=== PATIENT | female | born 1940 | race Caucasian/White ===

== ENCOUNTER 2021-09-17 19:30 | Inpatient (IN) | payer OTHER, MEDICAID ==
[~2021-09-17] VITALS: Ht 154.9 cm; Wt 49.4 kg
[~2021-09-17 19:30] MED LIST: EZET10TA PO; LEVO25TA2 PO
[2021-09-17 19:43] VITALS: BP_SYST 113
[2021-09-17] MEDS ORDERED: NACL 0.9% 1,000 ML IV ONE (20:30)
[2021-09-17] MEDS ORDERED: cefTRIAXone 1 GM IVPB PREMIX 50 ML IV ONE (20:45)
[2021-09-17 21:23] LABS: BILIRUBIN,URINE NEGATIVE (NEGATIVE); CLARITY/URINE CLEAR (CLEAR); COLOR,URINE YELLOW (YELLOW); GLUCOSE,URINE NEGATIVE (NEGATIVE); KETONES,URINE NEGATIVE (NEGATIVE); LEUKOCYTE ESTERASE ,URINE 1+ (NEGATIVE); NITRITE, URINE NEGATIVE (NEGATIVE); PH,URINE 6.5 (5.0-8.0); PROTEIN URINE NEGATIVE (NEGATIVE); UROBILINOGEN,URINE 0.2 (0.2-1.0)
[2021-09-17 21:26] LABS: BASOPHILS % (AUTO) 0.6 % (0.0-2.0); EOSINOPHILS # (AUTO) 0.1 K/uL (0.0-0.4); EOSINOPHILS % (AUTO) 1.2 % (0.0-4.0); HEMATOCRIT 37.7 % (36-48); LYMPHOCYTES # (AUTO) 1.8 K/uL (1.0-5.5); LYMPHOCYTES % (AUTO) 31.6 % (20.5-51.5); MEAN CORPUSCULAR HEMOGLOBIN 30 pg (27-31); MEAN CORPUSCULAR HGB CONC 35 % (32-36); MEAN CORPUSCULAR VOLUME 87 fL (79.0-98.0); MONOCYTES # (AUTO) 0.7 K/uL (0.0-1.0); MONOCYTES % (AUTO) 12.7 % (1.7-9.3); NEUTROPHILS # (AUTO) 3.1 K/uL (1.8-7.7); NEUTROPHILS % (AUTO) 53.9 % (40.0-70.0); PLATELET COUNT (AUTO) 274 K/uL (130-430); RED BLOOD CELL COUNT(AUTO) 4.32 MIL/uL (4.2-6.2); RED CELL DISTRIBUTION WIDTH 12.9 % (9.0-15.0); WHITE BLOOD COUNT (AUTO) 5.7 K/uL (4.8-10.8)
[2021-09-17 21:27] LABS: BLOOD, URINE TRACE (NEGATIVE)
[2021-09-17 21:34] LABS: BACTERIA,URINE FEW /HPF (None Seen); RBC,URINE 0-3 /HPF (0-3); WBC,URINE 0-3 /HPF (0-3)
[2021-09-17 22:05] LABS: ANION GAP 9 (5-15); CALCIUM 8.3 mg/dL (8.4-11.0); CHLORIDE 92 mmol/L (98-107); CREATININE 1.36 mg/dL (0.55-1.30); GLUCOSE 97 mg/dL (70-99); SODIUM SERUM 126 mmol/L (136-145); UREA NITROGEN, BLOOD 9 mg/dL (8-21)
[2021-09-17 22:20] LABS: ALANINE AMINOTRANSFERASE 25 U/L (12-78); ALBUMIN 3.3 g/dL (3.4-4.8); ASPARTATE AMINOTRANSFERASE 27 U/L (10-37); TOTAL BILIRUBIN 0.3 mg/dL (0.0-1.0)
[2021-09-17 22:50] LABS: POTASSIUM 2.4 mmol/L (3.5-5.1)
[2021-09-17] MEDS ORDERED: MAGNESIUM SULFATE 50 ML IV ONE (23:15)
[2021-09-17] MEDS ORDERED: KCL 40 mEq in 100 mL (PREMIX) 100 ML IV ONE (23:15)
[2021-09-17] MEDS ORDERED: POTASSIUM CHLORIDE 20 MEQ/PKT PACKET PO ONE (23:15)
[2021-09-18 03:30] VITALS: BP_SYST 99
[2021-09-18 04:00] VITALS: BP_SYST 99
[2021-09-18] MEDS: NACL 0.9% 1,000 ML IV SCH (05:39)
[2021-09-18 07:03] LABS: BASOPHILS % (AUTO) 0.4 % (0.0-2.0); EOSINOPHILS # (AUTO) 0.1 K/uL (0.0-0.4); EOSINOPHILS % (AUTO) 0.9 % (0.0-4.0); HEMATOCRIT 37.1 % (36-48); HEMOGLOBIN 12.6 g/dL (12.0-16.0); LYMPHOCYTES # (AUTO) 1.5 K/uL (1.0-5.5); LYMPHOCYTES % (AUTO) 24.4 % (20.5-51.5); MEAN CORPUSCULAR HEMOGLOBIN 30 pg (27-31); MEAN CORPUSCULAR HGB CONC 34 % (32-36); MEAN CORPUSCULAR VOLUME 88 fL (79.0-98.0); MONOCYTES # (AUTO) 0.7 K/uL (0.0-1.0); MONOCYTES % (AUTO) 10.8 % (1.7-9.3); NEUTROPHILS # (AUTO) 3.9 K/uL (1.8-7.7); NEUTROPHILS % (AUTO) 63.5 % (40.0-70.0); PLATELET COUNT (AUTO) 252 K/uL (130-430); RED BLOOD CELL COUNT(AUTO) 4.21 MIL/uL (4.2-6.2); WHITE BLOOD COUNT (AUTO) 6.1 K/uL (4.8-10.8)
[2021-09-18 08:00] VITALS: BP_SYST 95
[2021-09-18 08:21] LABS: ALANINE AMINOTRANSFERASE 20 U/L (12-78); ANION GAP 7 (5-15); ASPARTATE AMINOTRANSFERASE 23 U/L (10-37); CALCIUM 7.6 mg/dL (8.4-11.0); CHLORIDE 105 mmol/L (98-107); GLUCOSE 92 mg/dL (70-99); POTASSIUM 3.4 mmol/L (3.5-5.1); SODIUM SERUM 139 mmol/L (136-145); TOTAL BILIRUBIN 0.3 mg/dL (0.0-1.0); UREA NITROGEN, BLOOD 6 mg/dL (8-21)
[2021-09-18 12:00] VITALS: BP_SYST 99
[2021-09-18] MEDS ORDERED: CAMPHOR TP PRN (14:30)
[2021-09-18] MEDS ORDERED: PHENOL TP PRN (14:30)
[2021-09-18] MEDS ORDERED: POTASSIUM CHLORIDE 20 MEQ/PKT PACKET PO ONE (14:30)
[2021-09-18] MEDS ORDERED: DIMETHICONE TP PRN (14:30)
[2021-09-18] MEDS ORDERED: MENTHOL TP PRN (14:30)
[2021-09-18] MEDS ORDERED: PHENYLEPH/MINERAL OIL/PETROLAT 57 GM OINT.APPL TP PRN (14:30)
[2021-09-18] MEDS ORDERED: EZETIMIBE 10 MG TABLET PO ONE (14:45)
[2021-09-18] MEDS ORDERED: LEVOTHYROXINE SODIUM 0.075 MG TABLET PO ONE (14:45)
[2021-09-18 16:00] VITALS: BP_SYST 101
[2021-09-18 20:05] VITALS: BP_SYST 114
[2021-09-18] MEDS ORDERED: cefTRIAXone 1 GM VIAL IM SCH (21:00)
[2021-09-18] MEDS ORDERED: cefTRIAXone 1 GM IVPB PREMIX 50 ML IV ONE (22:01)
[2021-09-18] MEDS: cefTRIAXone 1 GM in D5W 50 ML IV SCH (22:30)
[2021-09-19 00:58] VITALS: BP_SYST 95
[2021-09-19] MEDS: NACL 0.9% 1,000 ML IV SCH ×2 (02:35→21:43)
[2021-09-19] MEDS: LEVOTHYROXINE SODIUM 0.075 MG TABLET PO SCH (06:08)
[2021-09-19 06:42] LABS: BASOPHILS % (AUTO) 0.6 % (0.0-2.0); EOSINOPHILS # (AUTO) 0.1 K/uL (0.0-0.4); EOSINOPHILS % (AUTO) 1.9 % (0.0-4.0); HEMATOCRIT 34.3 % (36-48); HEMOGLOBIN 11.7 g/dL (12.0-16.0); LYMPHOCYTES # (AUTO) 1.5 K/uL (1.0-5.5); LYMPHOCYTES % (AUTO) 27.2 % (20.5-51.5); MEAN CORPUSCULAR HEMOGLOBIN 30 pg (27-31); MEAN CORPUSCULAR HGB CONC 34 % (32-36); MEAN CORPUSCULAR VOLUME 89 fL (79.0-98.0); MONOCYTES # (AUTO) 0.6 K/uL (0.0-1.0); MONOCYTES % (AUTO) 10.9 % (1.7-9.3); NEUTROPHILS # (AUTO) 3.3 K/uL (1.8-7.7); NEUTROPHILS % (AUTO) 59.4 % (40.0-70.0); PLATELET COUNT (AUTO) 230 K/uL (130-430); RED BLOOD CELL COUNT(AUTO) 3.88 MIL/uL (4.2-6.2); RED CELL DISTRIBUTION WIDTH 13.2 % (9.0-15.0); WHITE BLOOD COUNT (AUTO) 5.5 K/uL (4.8-10.8)
[2021-09-19] MEDS ORDERED: LEVOTHYROXINE SODIUM 0.075 MG TABLET PO SCH (07:00)
[2021-09-19 07:32] LABS: ANION GAP 8 (5-15); CHLORIDE 108 mmol/L (98-107); CREATININE 0.87 mg/dL (0.55-1.30); GLUCOSE 87 mg/dL (70-99); PHOSPHORUS 2.4 mg/dL (2.7-4.5); SODIUM SERUM 142 mmol/L (136-145); THYROID STIMULATING HORMONE 2.06 uIu/mL (0.36-3.74); UREA NITROGEN, BLOOD 5 mg/dL (8-21)
[2021-09-19 07:46] VITALS: BP_SYST 104
[2021-09-19 08:08] LABS: CALCIUM 6.9 mg/dL (8.4-11.0); POTASSIUM 2.6 mmol/L (3.5-5.1)
[2021-09-19] MEDS: EZETIMIBE 10 MG TABLET PO SCH (08:51)
[2021-09-19] MEDS ORDERED: POTASSIUM CHLORIDE 20 MEQ TAB.PRT.SR PO ONE (10:00)
[2021-09-19] MEDS ORDERED: CALCIUM GLUCONATE 2 GM in NS 100 ML IV ONE (11:00)
[2021-09-19 12:16] VITALS: BP_SYST 132
[2021-09-19] MEDS ORDERED: K PHOS 15 MM in NS 250 ML IV ONE (14:00)
[2021-09-19 15:05] LABS: URIC ACID 4.1 mg/dL (2.4-7.0)
[2021-09-19 18:36] VITALS: BP_SYST 120
[2021-09-19 20:38] VITALS: BP_SYST 113
[2021-09-19] MEDS: DOCUSATE SODIUM 100 MG CAPSULE PO PRN (21:41)
[2021-09-19] MEDS: cefTRIAXone 1 GM in D5W 50 ML IV SCH (21:42)
[2021-09-19] MEDS: TEMAZEPAM 7.5 MG CAPSULE PO PRN (21:42)
[2021-09-20] VITALS: BP_SYST 116
[2021-09-20] MEDS: LEVOTHYROXINE SODIUM 0.075 MG TABLET PO SCH (06:12)
[2021-09-20 07:48] VITALS: BP_SYST 127
[2021-09-20 08:01] LABS: ANION GAP 8 (5-15); CHLORIDE 108 mmol/L (98-107); CREATININE 0.78 mg/dL (0.55-1.30); GLUCOSE 82 mg/dL (70-99); PHOSPHORUS 2.7 mg/dL (2.7-4.5); SODIUM SERUM 142 mmol/L (136-145); UREA NITROGEN, BLOOD 5 mg/dL (8-21)
[2021-09-20] MEDS: EZETIMIBE 10 MG TABLET PO SCH (08:04)
[2021-09-20] MEDS: POTASSIUM CHLORIDE 20 MEQ TAB.PRT.SR PO SCH (08:04)
[2021-09-20] MEDS: DOCUSATE SODIUM 100 MG CAPSULE PO PRN (08:05)
[2021-09-20 08:24] LABS: BASOPHILS % (AUTO) 0.4 % (0.0-2.0); EOSINOPHILS # (AUTO) 0.1 K/uL (0.0-0.4); EOSINOPHILS % (AUTO) 1.1 % (0.0-4.0); HEMOGLOBIN 12.5 g/dL (12.0-16.0); LYMPHOCYTES # (AUTO) 1.5 K/uL (1.0-5.5); MEAN CORPUSCULAR HEMOGLOBIN 30 pg (27-31); MEAN CORPUSCULAR HGB CONC 34 % (32-36); MEAN CORPUSCULAR VOLUME 89 fL (79.0-98.0); MONOCYTES # (AUTO) 0.8 K/uL (0.0-1.0); MONOCYTES % (AUTO) 8.9 % (1.7-9.3); NEUTROPHILS # (AUTO) 6.6 K/uL (1.8-7.7); NEUTROPHILS % (AUTO) 72.6 % (40.0-70.0); PLATELET COUNT (AUTO) 220 K/uL (130-430); RED BLOOD CELL COUNT(AUTO) 4.15 MIL/uL (4.2-6.2); RED CELL DISTRIBUTION WIDTH 13.2 % (9.0-15.0); WHITE BLOOD COUNT (AUTO) 9.1 K/uL (4.8-10.8)
[2021-09-20 09:02] LABS: POTASSIUM 2.7 mmol/L (3.5-5.1)
[2021-09-20] MEDS ORDERED: KCL 20 mEq in 100 mL (PREMIX) 100 ML IV ONE (10:00)
[2021-09-20] MEDS: methocarbamoL 500 MG TABLET PO PRN ×3 (12:13→23:32)
[2021-09-20] MEDS ORDERED: POTASSIUM CHLORIDE 20 MEQ/PKT PACKET PO ONE (12:45)
[2021-09-20 16:05] VITALS: BP_SYST 133
[2021-09-20] MEDS: NACL 0.9% 1,000 ML IV SCH (18:28)
[2021-09-20 20:00] VITALS: BP_SYST 119
[2021-09-20] MEDS: cefTRIAXone 1 GM in D5W 50 ML IV SCH (20:29)
[2021-09-21] VITALS: BP_SYST 124
[2021-09-21] MEDS: methocarbamoL 500 MG TABLET PO PRN ×3 (05:03→21:03)
[2021-09-21] MEDS: LEVOTHYROXINE SODIUM 0.075 MG TABLET PO SCH (06:29)
[2021-09-21 07:17] LABS: BASOPHILS % (AUTO) 0.3 % (0.0-2.0); EOSINOPHILS # (AUTO) 0.1 K/uL (0.0-0.4); EOSINOPHILS % (AUTO) 0.7 % (0.0-4.0); HEMATOCRIT 33.6 % (36-48); HEMOGLOBIN 11.5 g/dL (12.0-16.0); LYMPHOCYTES # (AUTO) 1.3 K/uL (1.0-5.5); LYMPHOCYTES % (AUTO) 17.9 % (20.5-51.5); MEAN CORPUSCULAR HEMOGLOBIN 30 pg (27-31); MEAN CORPUSCULAR HGB CONC 34 % (32-36); MEAN CORPUSCULAR VOLUME 89 fL (79.0-98.0); MONOCYTES # (AUTO) 0.8 K/uL (0.0-1.0); MONOCYTES % (AUTO) 11.4 % (1.7-9.3); NEUTROPHILS # (AUTO) 5.1 K/uL (1.8-7.7); NEUTROPHILS % (AUTO) 69.7 % (40.0-70.0); PLATELET COUNT (AUTO) 206 K/uL (130-430); RED BLOOD CELL COUNT(AUTO) 3.78 MIL/uL (4.2-6.2); RED CELL DISTRIBUTION WIDTH 13.7 % (9.0-15.0); WHITE BLOOD COUNT (AUTO) 7.4 K/uL (4.8-10.8)
[2021-09-21 07:51] VITALS: BP_SYST 104
[2021-09-21] MEDS: POTASSIUM CHLORIDE 20 MEQ TAB.PRT.SR PO SCH (08:04)
[2021-09-21] MEDS: EZETIMIBE 10 MG TABLET PO SCH (08:04)
[2021-09-21 08:08] LABS: ANION GAP 5 (5-15); CHLORIDE 107 mmol/L (98-107); CREATININE 0.82 mg/dL (0.55-1.30); GLUCOSE 87 mg/dL (70-99); POTASSIUM 3.5 mmol/L (3.5-5.1); SODIUM SERUM 138 mmol/L (136-145); UREA NITROGEN, BLOOD 4 mg/dL (8-21)
[2021-09-21 09:26] LABS: CALCIUM 6.6 mg/dL (8.4-11.0)
[2021-09-21] MEDS ORDERED: CALCIUM GLUCONATE 1 GM/10 ML VIAL IVP ONE (11:00)
[2021-09-21 11:27] VITALS: BP_SYST 103
[2021-09-21] MEDS ORDERED: CALCIUM GLUCONATE 2 GM in NS 100 ML IV ONE (12:00)
[2021-09-21] MEDS ORDERED: CALCIUM 500 MG/TAB PO ONE (12:00)
[2021-09-21] MEDS: NACL 0.9% 1,000 ML IV SCH (13:47)
[2021-09-21 16:04] VITALS: BP_SYST 131
[2021-09-21 20:53] VITALS: BP_SYST 116
[2021-09-21] MEDS: CALCIUM 500 MG/TAB PO SCH (21:03)
[2021-09-21] MEDS: cefTRIAXone 1 GM in D5W 50 ML IV SCH (21:03)
[2021-09-22] MEDS: TEMAZEPAM 7.5 MG CAPSULE PO PRN
[2021-09-22 01:02] VITALS: BP_SYST 114
[2021-09-22] MEDS: methocarbamoL 500 MG TABLET PO PRN ×3 (04:29→17:54)
[2021-09-22] MEDS: LEVOTHYROXINE SODIUM 0.075 MG TABLET PO SCH (06:54)
[2021-09-22 08:00] VITALS: BP_SYST 104
[2021-09-22 08:20] LABS: ANION GAP 9 (5-15); CALCIUM 7.6 mg/dL (8.4-11.0); UREA NITROGEN, BLOOD 5 mg/dL (8-21)
[2021-09-22] MEDS: POTASSIUM CHLORIDE 20 MEQ TAB.PRT.SR PO SCH ×2 (08:28→21:40)
[2021-09-22] MEDS: EZETIMIBE 10 MG TABLET PO SCH (08:29)
[2021-09-22] MEDS: DOCUSATE SODIUM 100 MG CAPSULE PO PRN ×2 (08:29→21:39)
[2021-09-22] MEDS: CALCIUM 500 MG/TAB PO SCH ×2 (08:29→21:10)
[2021-09-22 08:42] LABS: CHLORIDE 101 mmol/L (98-107); CREATININE 0.74 mg/dL (0.55-1.30); GLUCOSE 90 mg/dL (70-99); SODIUM SERUM 134 mmol/L (136-145)
[2021-09-22 08:58] LABS: POTASSIUM 2.5 mmol/L (3.5-5.1)
[2021-09-22] MEDS ORDERED: CALCIUM 500 MG/TAB PO SCH (09:00)
[2021-09-22] MEDS ORDERED: POTASSIUM CHLORIDE 20 MEQ TAB.PRT.SR PO ONE (09:45)
[2021-09-22] MEDS: NACL 0.9% 1,000 ML IV SCH (10:00)
[2021-09-22] MEDS ORDERED: POTASSIUM CHLORIDE 40 MEQ in NS 250 ML IV ONE (10:30)
[2021-09-22 12:00] VITALS: BP_SYST 114
[2021-09-22 16:00] VITALS: BP_SYST 124
[2021-09-22] MEDS: cefTRIAXone 1 GM in D5W 50 ML IV SCH (21:11)
[2021-09-22 21:16] VITALS: BP_SYST 114
[2021-09-23 00:05] VITALS: BP_SYST 129
[2021-09-23] MEDS: TEMAZEPAM 7.5 MG CAPSULE PO PRN (00:08)
[2021-09-23] MEDS: methocarbamoL 500 MG TABLET PO PRN ×3 (00:09→13:56)
[2021-09-23] MEDS: LEVOTHYROXINE SODIUM 0.075 MG TABLET PO SCH (06:51)
[2021-09-23] MEDS: EZETIMIBE 10 MG TABLET PO SCH (08:40)
[2021-09-23] MEDS: POTASSIUM CHLORIDE 20 MEQ TAB.PRT.SR PO SCH (08:40)
[2021-09-23] MEDS: CALCIUM 500 MG/TAB PO SCH (08:41)
[2021-09-23 09:04] VITALS: BP_SYST 117
[2021-09-23 11:34] VITALS: BP_SYST 138
[2021-09-23 15:27] VITALS: BP_SYST 120
[2021-09-23] MEDS ORDERED: SODIUM PHOSPHATE,MONO-DIBASIC 133 ML ENEMA RC ONE (15:45)
[2021-09-23 16:51] VITALS: BP_SYST 120
== END 2021-09-23 18:10 | disposition home health service (06) | DRG 683 ==
LOC: SED 19:30 → STU 09-18 00:52
PROVIDERS: ADMIT Internal Medicine; ATTEND Internal Medicine
DX: N17.0 Acute kidney failure with tubular necrosis (principal); E87.1 Hypo-osmolality and hyponatremia; N13.6 Pyonephrosis; E86.0 Dehydration; K80.20 Calculus of gallbladder without cholecystitis without obstruction; E87.6 Hypokalemia; E78.00 Pure hypercholesterolemia, unspecified; R33.9 Retention of urine, unspecified; E89.0 Postprocedural hypothyroidism; E78.5 Hyperlipidemia, unspecified; M41.9 Scoliosis, unspecified; Z20.822 Contact with and (suspected) exposure to COVID-19; Z83.3 Family history of diabetes mellitus; Z86.16 Personal history of COVID-19; Z90.5 Acquired absence of kidney; Z82.49 Family history of ischemic heart disease and other diseases of the circulatory system; Z98.891 History of uterine scar from previous surgery
CPT/HCPCS: 36415; 76376; 76770; 80048; 80053; 81000; 82043; 82533; 82570; 83605; 83735; 83930; 83935; 84100; 84132; 84302; 84443; 84550; 85025; 87040; 87086; 93005; 96365; 96366; 96367; 99291; G0378; J0610; J0696; J3475; J3480; J7050; J7060